=== PATIENT | female | born 1945 | race Caucasian/White ===

== ENCOUNTER → 2020-03-26 09:31 | Outpatient (BNVA) | payer MEDICARE, OTHER, MEDICAID, SELFPAY | PROVIDERS: Family Provider Internal Medicine; PCP Internal Medicine; Visit Provider Internal Medicine | DX: M06.9 Rheumatoid arthritis, unspecified (principal); Z79.899 Other long term (current) drug therapy; Z85.841 Personal history of malignant neoplasm of brain | CPT/HCPCS: 80053; 85025; 85651; 86140; 99213 ==

== ENCOUNTER → 2020-05-15 10:45 | Outpatient (BNVA) | payer MEDICARE, OTHER, SELFPAY | PROVIDERS: Family Provider Internal Medicine; PCP Internal Medicine; Referring Provider Internal Medicine; Visit Provider Anesthesiology Pain Medicine | DX: M06.9 Rheumatoid arthritis, unspecified (principal); M54.9 Dorsalgia, unspecified; M47.812 Spondylosis without myelopathy or radiculopathy, cervical region; Z79.891 Long term (current) use of opiate analgesic | CPT/HCPCS: 99204 ==

== ENCOUNTER 2020-05-21 12:54 | Outpatient (CLI) | payer MEDICARE, OTHER, MEDICAID, SELFPAY ==
--- NOTE | 2020-05-21 13:14 | XR_ITS ---
WS: [id number] THORACIC SPINE TECHNIQUE: 3 views of the thoracic spine CLINICAL INFORMATION: upper back pain COMPARISON: None. FINDINGS: Osteopenia. Mild thoracic curve convex right. Mild thoracic kyphosis. Mild disc space narrowing mid a nd lower thoracic spine. Mild compression superior endplate T2 likely chronic. No acute appearing com pression fractures. Cholecystectomy clips. XR/XR thoracic spine 3V* [id number] IMPRESSION: 1. Mild thoracic curve convex right and mild thoracic kyphosis. Osteopenia. 2. Mild compression superior endplate T2 likely chronic. 3. Mild spondylitic changes with disc space narrowing in the mid and lower tho racic spine.
--- NOTE | 2020-05-21 13:14 | XR_ITS ---
WS: [id number] LUMBAR SPINE TECHNIQUE: 3 views of the lumbar spine CLINICAL INFORMATION: lower back pain COMPARISON: None. FINDINGS: L5 is sacralized. Slight anterolisthesis L4 on L5 measuring 3.3 mm. Mild disc space narrowing L4-5. N o acute appearing compression fractures. Moderate facet arthropathy lower lumbar spine. Slight irving listhesis L5 on S1 Osteopenia. Cholecystectomy clips. XR/XR lumbar spine 2-3V* [id number] IMPRESSION: 1. L5 is sacralized. 2. Grade 1 anterolisthesis L4 on L5 with mild disc space narrowing. 3. Moderate facet arthropathy lower lumbar spine. 4. No acute appearing compression fractures.
--- NOTE | 2020-05-21 13:14 | XR_ITS ---
WS: [id number] CERVICAL SPINE TECHNIQUE: 3 views of the cervical spine CLINICAL INFORMATION: neck pain COMPARISON: None. FINDINGS: Slight exaggeration the normal cervical lordosis. Normal prevertebral soft tissues. Normal C1-2 artic ulation. Mild facet arthropathy. Mild spondylitic changes. XR/XR cervical spine 3V* [id number] IMPRESSION: Mild spondylitic changes cervical spine.
== END 2020-05-21 12:55 | disposition home or self-care (01) ==
LOC: RADWPI 13:02
PROVIDERS: PCP Internal Medicine; Visit Provider Internal Medicine
DX: M06.9 Rheumatoid arthritis, unspecified (principal); M40.294 Other kyphosis, thoracic region; M85.88 Other specified disorders of bone density and structure, other site; M47.896 Other spondylosis, lumbar region
CPT/HCPCS: 72040; 72072; 72100

== ENCOUNTER → 2020-06-12 09:10 | Outpatient (BNVA) | payer MEDICARE, OTHER, SELFPAY | PROVIDERS: Family Provider Internal Medicine; PCP Internal Medicine; Visit Provider Anesthesiology Pain Medicine | DX: M06.9 Rheumatoid arthritis, unspecified (principal); M47.812 Spondylosis without myelopathy or radiculopathy, cervical region; M54.9 Dorsalgia, unspecified; Z79.891 Long term (current) use of opiate analgesic | CPT/HCPCS: 99213 ==

== ENCOUNTER → 2020-07-10 10:19 | Outpatient (BNVA) | payer MEDICARE, MEDICAID, SELFPAY | PROVIDERS: Family Provider Internal Medicine; PCP Internal Medicine; Visit Provider Anesthesiology Pain Medicine | DX: M54.9 Dorsalgia, unspecified (principal); M06.9 Rheumatoid arthritis, unspecified; M47.812 Spondylosis without myelopathy or radiculopathy, cervical region; Z79.891 Long term (current) use of opiate analgesic | CPT/HCPCS: 99213 ==

== ENCOUNTER → 2020-07-15 14:05 | Outpatient (BNVA) | payer MEDICARE, MEDICAID, SELFPAY | PROVIDERS: Family Provider Internal Medicine; PCP Internal Medicine; Visit Provider Internal Medicine | DX: M06.9 Rheumatoid arthritis, unspecified (principal); D86.9 Sarcoidosis, unspecified; M54.5 Low back pain; G89.29 Other chronic pain | CPT/HCPCS: 99213 ==

== ENCOUNTER → 2020-08-07 10:45 | Outpatient (BNVA) | payer MEDICARE, MEDICAID, SELFPAY | PROVIDERS: Family Provider Internal Medicine; PCP Internal Medicine; Visit Provider Anesthesiology Pain Medicine | DX: M47.812 Spondylosis without myelopathy or radiculopathy, cervical region (principal); M06.9 Rheumatoid arthritis, unspecified; M54.9 Dorsalgia, unspecified; K59.03 Drug induced constipation; T40.2X5A Adverse effect of other opioids, initial encounter; X58.XXXA Exposure to other specified factors, initial encounter; Z79.891 Long term (current) use of opiate analgesic; E03.8 Other specified hypothyroidism; K21.9 Gastro-esophageal reflux disease without esophagitis; D86.9 Sarcoidosis, unspecified; I10 Essential (primary) hypertension; Z71.89 Other specified counseling | CPT/HCPCS: 80053; 80061; 82306; 82550; 82607; 84443; 85025; 99213 ==

== ENCOUNTER → 2020-09-03 10:26 | Outpatient (BNVA) | payer MEDICARE, MEDICAID, SELFPAY | PROVIDERS: Family Provider Internal Medicine; PCP Internal Medicine; Visit Provider Anesthesiology Pain Medicine | DX: M54.9 Dorsalgia, unspecified (principal); M06.9 Rheumatoid arthritis, unspecified; M47.812 Spondylosis without myelopathy or radiculopathy, cervical region; K59.03 Drug induced constipation; T40.2X5A Adverse effect of other opioids, initial encounter; X58.XXXA Exposure to other specified factors, initial encounter | CPT/HCPCS: 99214 ==

== ENCOUNTER → 2020-09-16 13:37 | Outpatient (BNVA) | payer MEDICARE, MEDICAID, SELFPAY | PROVIDERS: Family Provider Internal Medicine; PCP Internal Medicine; Visit Provider Anesthesiology Pain Medicine | DX: M47.814 Spondylosis without myelopathy or radiculopathy, thoracic region (principal); M54.9 Dorsalgia, unspecified | CPT/HCPCS: 64490; 64491; J1040; J3490 ==

== ENCOUNTER → 2020-10-11 10:09 | Outpatient (BNVA) | payer MEDICARE, MEDICAID, SELFPAY | PROVIDERS: Family Provider Internal Medicine; PCP Internal Medicine; Visit Provider Anesthesiology Pain Medicine | DX: M54.9 Dorsalgia, unspecified (principal); M47.812 Spondylosis without myelopathy or radiculopathy, cervical region; M06.9 Rheumatoid arthritis, unspecified; K59.03 Drug induced constipation; T40.2X5A Adverse effect of other opioids, initial encounter; X58.XXXA Exposure to other specified factors, initial encounter; Z79.899 Other long term (current) drug therapy; Z79.891 Long term (current) use of opiate analgesic | CPT/HCPCS: 99214 ==

== ENCOUNTER → 2020-10-30 10:56 | Outpatient (BNVA) | payer MEDICARE, MEDICAID, SELFPAY | PROVIDERS: Family Provider Internal Medicine; PCP Internal Medicine; Visit Provider Anesthesiology Pain Medicine | DX: M54.9 Dorsalgia, unspecified (principal); M47.812 Spondylosis without myelopathy or radiculopathy, cervical region; M06.9 Rheumatoid arthritis, unspecified; T40.2X5A Adverse effect of other opioids, initial encounter; X58.XXXA Exposure to other specified factors, initial encounter; Z79.899 Other long term (current) drug therapy; Z79.891 Long term (current) use of opiate analgesic | CPT/HCPCS: 99214 ==

== ENCOUNTER → 2020-11-04 12:37 | Outpatient (BNVA) | payer MEDICARE, MEDICAID, SELFPAY | PROVIDERS: Family Provider Internal Medicine; PCP Internal Medicine; Visit Provider Internal Medicine | DX: M06.9 Rheumatoid arthritis, unspecified (principal); Z79.899 Other long term (current) drug therapy; Z11.1 Encounter for screening for respiratory tuberculosis; Z11.59 Encounter for screening for other viral diseases; M54.9 Dorsalgia, unspecified | CPT/HCPCS: 80053; 85025; 85651; 86140; 86480; 86704; 86803; 87340; 99213; 99214 ==

== ENCOUNTER → 2020-11-27 10:34 | Outpatient (BNVA) | payer MEDICARE, MEDICAID, SELFPAY | PROVIDERS: Family Provider Internal Medicine; PCP Internal Medicine; Visit Provider Anesthesiology Pain Medicine | DX: M79.18 Myalgia, other site (principal); M54.9 Dorsalgia, unspecified; M47.812 Spondylosis without myelopathy or radiculopathy, cervical region; M06.9 Rheumatoid arthritis, unspecified; T40.2X5A Adverse effect of other opioids, initial encounter; X58.XXXA Exposure to other specified factors, initial encounter; Z79.891 Long term (current) use of opiate analgesic | CPT/HCPCS: 20553; 99214; J1030; J3490 ==

== ENCOUNTER → 2023-02-17 13:10 | Outpatient (BNVA) | payer MEDICARE, OTHER, SELFPAY | PROVIDERS: Family Provider Internal Medicine; PCP Internal Medicine; Visit Provider Family Medicine | DX: E03.8 Other specified hypothyroidism (principal); G47.00 Insomnia, unspecified; D50.9 Iron deficiency anemia, unspecified; I10 Essential (primary) hypertension | CPT/HCPCS: 80053; 80061; 83540; 84443; 85025 ==

== ENCOUNTER 2023-04-06 17:03 | Emergency (ER) | payer MEDICARE, OTHER, SELFPAY ==
[2023-04-06 17:08] VITALS: BP 119/63; PULSE 54; TEMP 37; O2SAT 97; BMI 20.5
--- NOTE | 2023-04-06 17:45 | XRR_ITS ---
PROCEDURE INFORMATION: Exam: XR Chest Exam date and time: 04/06/2023 6:04 PM Age: 77 years old Clinical indication: Pain; Chest pressure; Additional info: Trauma TECHNIQUE: Imaging protocol: Radiologic exam of the chest. Views: 1 view. COMPARISON: CT cervical spin wo con* [id number] 04/06/2023 5:56 PM FINDINGS: Lungs: Unremarkable. No consolidation. Pleural spaces: Unremarkable. No pleural effusion. No pneumothorax. Heart/Mediastinum: Unremarkable. No cardiomegaly. Bones/joints: Question an old fracture deformity of the proximal right humerus. Visualized osseous structures are intact. XR/XR chest 1V portable [id number] IMPRESSION: No acute findings.
--- NOTE | 2023-04-06 17:45 | CTR_ITS ---
PROCEDURE INFORMATION: Exam: CT Cervical Spine Without Contrast Exam date and time: 04/06/2023 5:56 PM Age: 77 years old Clinical indication: Injury or trauma; Fall; Concussion/head injury; Additional info: Fall from standing TECHNIQUE: Imaging protocol: Computed tomography of the cervical spine without contrast. Radiation optimization: All CT scans at this facility use at least one of these dose optimization techniques: automated exposure control; mA and/or kV adjustment per patient size (includes targeted exams where dose is matched to clinical indication); or iterative reconstruction. REPORTING DATA: Count of CT and Cardiac NM exams in prior 12 months: This patient has received 0 known CTs and 0 known cardiac nuclear medicine studies in the 12 months prior to the current study. COMPARISON: CR XR cervical spine 3V* [id number] 05/21/2020 1:21 PM RADIATION DOSE METRICS: Total DLP (mGy-cm): 163.1 FINDINGS: Bones/joints: No acute fracture. Normal alignment. No significant disc bulge or herniation. No severe spinal canal stenosis. No significant neural foraminal narrowing. Lungs: Lung apices are normal. Soft tissues: Unremarkable. CT/CT cervical spin wo con* [id number] IMPRESSION: No acute findings.
--- NOTE | 2023-04-06 17:45 | XRR_ITS ---
PROCEDURE INFORMATION: Exam: XR Left Hip Exam date and time: 04/06/2023 6:01 PM Age: 77 years old Clinical indication: Injury or trauma; Fall; Additional info: Fall with pain/injury TECHNIQUE: Imaging protocol: Radiologic exam of the left hip. Views: 2 or 3 views hip with pelvis when performed. COMPARISON: CT abdomen pelvis wo con [id number] 06/11/2018 9:57 PM FINDINGS: Bones/joints: No acute fracture. Soft tissues: Unremarkable. XR/XR hip LT 2-3V wo/w pel* [id number] IMPRESSION: No acute findings.
--- NOTE | 2023-04-06 17:45 | CTR_ITS ---
PROCEDURE INFORMATION: Exam: CT Head Without Contrast Exam date and time: 04/06/2023 5:56 PM Age: 77 years old Clinical indication: Injury or trauma; Fall; Concussion/head injury; Consciousness not specified; Additional info: Fall with injury unk loc TECHNIQUE: Imaging protocol: Computed tomography of the head without contrast. Radiation optimization: All CT scans at this facility use at least one of these dose optimization techniques: automated exposure control; mA and/or kV adjustment per patient size (includes targeted exams where dose is matched to clinical indication); or iterative reconstruction. REPORTING DATA: Count of CT and Cardiac NM exams in prior 12 months: This patient has received 0 known CTs and 0 known cardiac nuclear medicine studies in the 12 months prior to the current study. COMPARISON: CT head wo con* [id number] 06/10/2016 11:12 PM RADIATION DOSE METRICS: Total DLP (mGy-cm): 1150.95 FINDINGS: Brain: No hemorrhage. No edema. Moderate diffuse cerebral atrophy and mild sequela of chronic small vessel ischemic disease. Focal encephalomalacia in the inferior aspect of the left frontal lobe. No mass effect. Cerebral ventricles: No ventriculomegaly. Paranasal sinuses: Sequela of FESS. Mastoid air cells: Visualized mastoid air cells are well aerated. Bones/joints: Frontal craniotomy changes. No acute fracture. Soft tissues: Unremarkable. CT/CT head wo con* [id number] IMPRESSION: No acute intracranial abnormality.
--- NOTE | 2023-04-06 17:50 | ED_ITS ---
HPI - Fall General: Chief Complaint: Fall Stated Complaint: Fall Time Seen by Provider: 04/06/23 17:09 History of Present Illness: 77-year-old female presents to the emergency department chief complaint of having fallen from standing position when she lost her balance onto a wood floor she fell onto her left side she is complaining of left-sided facial pain and swelling to her face as well as left hip pain patient reports she is having difficulty with movement of her left hip to see an incident patient reports she had no loss of consciousness also complains of mild neck pain patient does not remark of any shoulder or back elbow or wrist pain. Patient presents to the ER with her son present for further assessment and management. Associated symptoms-after fall: Denies abdominal pain, chest pain or headache(s) Review of Systems General: Reports: 10 or more systems reviewed and unremarkable except in HPI and below Const: Denies: fever(s), chills, fatigue or malaise Eyes: Denies: change in vision or blurry vision Card: Denies: chest pain or palpitations Resp: Denies: dyspnea or productive cough GI: Denies: abdominal pain, nausea or vomiting : Denies: flank pain Musc: Reports: extremity pain, joint stiffness and limited range of motion Skin/Breast: Denies: rash or pruritus Neuro: Denies: headache(s) Psych: Denies: anxiety or depression Vick/Lymph: Denies: easy bleeding All/Imm: Denies: urticaria, throat swelling or facial swelling [facility] ED PFSH: Medical History Iron deficiency anemia Ischemic bowel disease half-way (current) use of opiate analgesic Pain management contract signed Rheumatoid arthritis Rheumatoid arthritis Surgical History S/P appendectomy S/P laparotomy Family History Other Rheumatoid arthritis Denies family history of Diabetes Lupus CAD (coronary artery disease) Cancer Hypertension Social History Smoking and tobacco status: never smoked Alcohol intake: never Substance/Drug Use: never Physical Exam Const: COMMON NORMALS: no acute distress, patient oriented x3 and healthy appearing HENMT: COMMON NORMALS: normocephalic; head/scalp not atraumatic (Mild facial swelling a small contusion noted to the lower left as well as a) HEAD & SCALP: normocephalic; not atraumatic (Mild facial swelling a small contusion noted to the lower left as well as a) Eye: COMMON NORMALS: Equal, round and reactive pupils present and EOMs intact bilaterally PUPIL: Yes Equal, round and reactive pupils present Neck/C-Spine: COMMON NORMALS: full ROM, supple and no JVD Lymph: LYMPHATIC: no lymphadenopathy noted Chest: COMMONS NORMALS: normal inspection of the chest and normal palpation of entire chest wall Resp: COMMON NORMALS: normal respiratory effort, No retractions and clear to auscultation bilaterally EFFORT & INSPECTION: Yes able to speak in complete sentences and Yes symmetric chest movement AUSCULTATION: clear to auscultation bilaterally Cardio: COMMON NORMALS: no JVD, regular rate and regular rhythm RATE: regular rate RHYTHM: regular rhythm GI: COMMON NORMALS: Normal to inspection, nondistended, normoactive bowel sounds present, Soft to palpation and non-tender INSPECTION: Yes normal to inspection PALPATION: Yes Soft to palpation : COMMON NORMALS: Yes no CVA tenderness BLADDER/KIDNEY EXAM: Yes no CVA tenderness Back/Pelvis: COMMON NORMALS: no CVA tenderness Extremity: COMMON NORMALS: negative for normal to inspection (Reduced range of motion of flexion extension due to pain no obvious crepitu) and negative for full ROM Neuro: COMMON NORMALS: patient oriented x3, CN's II-XII intact bilaterally, moves all extremities and no focal motor deficits Psych: COMMON NORMALS: mental status grossly normal, Normal thought process present, cooperative and normal affect THOUGHT PROCESS: Normal thought process present Skin: COMMON NORMALS: no rashes or lesions noted GENERAL SKIN EXAM: no rashes or lesions noted Course Vital Signs: Vital signs: Vital Signs Temperature 98.6 F 04/06/23 17:08 Pulse Rate 54 L 04/06/23 17:08 Blood Pressure 119/63 04/06/23 17:08 Pulse Oximetry 97 04/06/23 17:08 Oxygen Delivery Me thod Room Air 04/06/23 17:08 MDM - Fall Medical Decision Making Due to patient's symptoms and condition x-ray imaging left hip will be obtained CT imaging the head and cervical spine will be obtained we will continue to follow patient provided for some fentanyl for breakthrough pain control as well as basic lab work was obtained. CT imaging and x-ray imaging all came back unremarkable patient was able to ambulate with mild difficulty with staff present patient be started on a limited prescription of some Tylenol 3 for breakthrough pain control patient advised to return the interim if any of her symptoms persist or worse. Lab Data Radiology Impressions Cervical Spine CT 04/06/23 17:45 IMPRESSION: No acute findings. Chest X-Ray 04/06/23 17:45 IMPRESSION: No acute findings. Head CT 04/06/23 17:45 IMPRESSION: No acute intracranial abnormality. Hip/Pelvis X-Ray 04/06/23 17:45 IMPRESSION: No acute findings. Discharge Plan Discharge Patient Disposition: Home Clinical Impression: Fall from standing, Strain of left hip Condition: Stable Prescriptions: New acetaminophen-codeine 300-30 mg tablet 1 tab PO Q6H PRN (Reason: pain) Qty: 14 0RF No Action oxybutynin chloride 5 mg tablet 5 mg PO TID Qty: 90 3RF metoprolol tartrate 25 mg tablet 25 mg PO BID Qty: 60 5RF levothyroxine 75 mcg capsule 75 mcg PO DAILY Qty: 30 5RF hydrochlorothiazide 12.5 mg tablet 12.5 mg PO DAILY Qty: 30 3RF diclofenac sodium [Voltaren Arthritis Pain] 1 % gel 2 g topical QID Qty: 100 3RF Rx Instructions: apply qid amitriptyline 50 mg tablet 50 mg PO .qhs Qty: 30 3RF sertraline [Zoloft] 50 mg tablet 50 mg PO DAILY Qty: 30 2RF fenofibrate 160 mg tablet 160 mg PO DAILY Qty: 30 2RF Rx Instructions: needs recheck lab at end of last refill buspirone 15 mg tablet 15 mg PO TID PRN (Reason: anxiety) Qty: 90 1RF hydrocodone-acetaminophen 5-325 mg tablet 1 tab PO BID PRN (Reason: pain) 30 Days Qty: 60 0RF Discharge Orders: Discharge ED (Routine); Ordered 04/06/23 Ordered By: Chino Miller Referrals: Maria Elena Cottrell MD [Primary Care Provider] - 4-7 days (As needed for further assessment and management if your pain continues) Discharge Diet: Usual diet Discharge Activity: Increase activity as tolerated and Use walker/crutches as instructed Patient Instructions: Fall Prevention for Older Adults (ED), Hip Sprain (ED), Fall Prevention (ED), Opioid Safety, Pain Management Activity Restrictions/Additional Instructions: Please further follow-up with your primary care doctor in 3 to 5 days please continue using walker as already in use. Please take medications as prescribed and please return the interim if any of your symptoms persist or worse. Coding Level of Care Code ED Exhaust Tender for Katya Monroe
[2023-04-06] MEDS: ondansetron 2 mg/ML SDV 2 mL 4 MG IVP (18:12)
[2023-04-06] MEDS: sodium chloride 0.9% 500 ML 999 ML IV (18:13)
[2023-04-06 19:13] VITALS: BP 119/63; PULSE 54; TEMP 37; O2SAT 97
== END 2023-04-06 19:14 | disposition home or self-care (01) ==
PROVIDERS: Emergency Provider Emergency Medicine; PCP Family Medicine
DX: S76.012A Strain of muscle, fascia and tendon of left hip, initial encounter (principal); W01.0XXA Fall on same level from slipping, tripping and stumbling without subsequent striking against object, initial encounter
CPT/HCPCS: 70450; 71045; 72125; 73502; 96374; 99285; J2405; J7040

== ENCOUNTER 2023-04-20 12:58 | Outpatient (CLI) | payer MEDICARE, OTHER, SELFPAY ==
--- NOTE | 2023-04-20 13:08 | XRR_ITS ---
PROCEDURE INFORMATION: Exam: XR Left Hip Exam date and time: 04/20/2023 1:14 PM Age: 77 years old Clinical indication: Hip pain; Left hip TECHNIQUE: Imaging protocol: Radiologic exam of the left hip. Views: 2 or 3 views hip with pelvis when performed. COMPARISON: CR (PELVIS, ) 04/06/2023 6:01 PM FINDINGS: Bones/joints: No acute fracture or dislocation. Left sacroiliac joint and pubic symphysis degenerative change. Soft tissues: Unremarkable. Intraperitoneal space: Anastomotic suture material in the pelvis. XR/XR hip LT 2-3V wo/w pel* [id number] IMPRESSION: No acute findings. If there is persistent clinical concern, consider MRI.
== END 2023-04-20 12:59 | disposition home or self-care (01) ==
LOC: RAD 13:01
PROVIDERS: PCP Family Medicine; Visit Provider Family Medicine
DX: M25.552 Pain in left hip (principal)
CPT/HCPCS: 73502

== ENCOUNTER → 2023-04-23 11:19 | Outpatient (BNVA) | payer MEDICARE, OTHER, SELFPAY | PROVIDERS: PCP Family Medicine; Visit Provider Family Medicine | DX: D50.9 Iron deficiency anemia, unspecified (principal); I10 Essential (primary) hypertension; Z79.899 Other long term (current) drug therapy | CPT/HCPCS: 80053; 80307; 81003; 85025; 87077; 87086; 87184 ==

== ENCOUNTER 2024-03-01 10:23 | Observation (INO) | payer MEDICARE, OTHER, SELFPAY ==
[2024-03-01] VITALS (8 sets, daily range): BP systolic 109–137; BP diastolic 54–80; PULSE 50–73; RESP 14–16; TEMP 36.4–36.6; O2SAT 97–100; BMI 24.8
--- NOTE | 2024-03-01 10:30 | ECG_ITS ---
[facility] Test Date: 2024-03-01 Pat Name: Caitlin Espinosa Department: Room: Gender: Female Geriatric Personal Care Aide: : 1945 Requested By: Roosevelt Ayala Order Number: [id number] Garza MD: Ivelisse Mckeon M.D. Measurements Intervals Marcus Rate: 52 P: 89 NE: 189 QRS: -4 QRSD: 81 T: 67 QT: 433 QTc: 404 Interpretive Statements SINUS BRADYCARDIA NONSPECIFIC T-WAVE ABNORMALITY Compared to ECG 06/11/2018 22:56:34 T-wave abnormality now present Sinus tachycardia no longer present ST (T wave) deviation no longer present Electronically Signed On 03-02-2024 0:17:21 CDT by Ivelisse Mckeon M.D. [id number]
[2024-03-01 10:59] LABS: Basophils # 0.1 10^3/uL (0.0-0.1); Basophils % 1.7 %; Eosinophils # 0.2 10^3/uL (0.0-0.8); Eosinophils % 3.7 %; Hematocrit 24.3 % (36-47); Lymphocytes # 2.2 10^3/uL (0.8-4.8); Lymphocytes % 42.9 %; Mean Corpuscular Hemoglobin 25.5 pg (27-33); Mean Platelet Volume 9.4 fL (7.4-10.4); Monocytes # 0.6 10^3/uL (0.2-0.9); Monocytes % 10.6 %; Neutrophils # 2.11 10^3/uL (1.8-7.7); Neutrophils % 40.9 %; Nucleated Red Blood Cells % 0 %; Platelet Count 630 10^3/cmm (157-399); Red Blood Count 2.86 10^6/uL (3.85-5.65); Red Cell Distribution Width 14.6 % (12.1-15.1); White Blood Count 5.17 10^3/uL (3.29-11.43)
[2024-03-01 11:19] LABS: Alanine Aminotransferase 9 U/L (0-33); Albumin Level 3.8 g/dL (3.5-5.2); Alkaline Phosphatase 56 U/L (35-105); Anion Gap 15.9 (5-19); Aspartate Amino Transferase 29 U/L (0-32); Blood Urea Nitrogen 24 mg/dL (8-23); Calcium 9.2 mg/dL (8.5-10.5); Carbon Dioxide 21 mmol/L (22-29); Chloride 101 mmol/L (98-107); Globulin 3.3 g/dL (1.3-4.6); Glucose 103 mg/dL (65-115); Osmolality Calculated 280 mOsm/kg (285-295); Potassium 4.9 mmol/L (3.5-5.1); Sodium 133 mmol/L (136-145); Total Bilirubin 0.2 mg/dL (0.15-1.2); Total Protein 7.1 g/dL (6.6-8.7)
[2024-03-01 12:02] LABS: INR 1.02 (0.8-1.2)
[2024-03-01 12:03] LABS: Partial Thromboplastin Time 31.3 SECONDS (23.9-36.7)
[2024-03-01 12:08] LABS: C Reactive Protein 3.3 mg/L (0.0-4.9)
[2024-03-01] MEDS: pantoprazole 40 mg SDV 80 MG IVP (12:12)
--- NOTE | 2024-03-01 12:14 | P.HP_ITS ---
Providers/Chief Complaint 2 Primary Care Provider: Maria Elena Cottrell MD Chief Complaint: blood in stool, fall History of Present Illness Caitlin Espinosa is a 78 year old female who has a history of iron deficiency anemia stating that she has been getting iron in the past, lately she has been very weak and lethargic. Patient came to the hospital because she was extremely weak and lethargic to the point she could not get up change from sitting to standing. Patient started noticing darker stools lately patient stating that she was extremely weak she had a BM, she had no energy to get up from the stool waited for her son to come in and help her out but he was mowing the lawn so he took a lot of time she got tired put her robe on the floor and slid, she did not flush when her son checked on her noticed dark-colored stools. She has not noticed any blood in vomiting or urine. Endorsing history of iron infusion in the past Patient stating that she never had screening colonoscopy She has history of arthritis takes meloxicam as well not on any anticoagulating agent Review of Systems 2 Const: Reports: chills, body aches, fatigue and malaise; Denies: fever(s) Eyes: Denies: change in vision ENMT: Denies: throat pain Card: Denies: chest pain Resp: Denies: dyspnea GI: Denies: abdominal pain Medications/Allergies Home Medications Medication Instructions Recorded Confirmed Last Taken Type metoprolol tartrate 25 mg tablet 25 mg PO BID #60 tabs 09/07/23 03/01/24 03/01/24 Rx fenofibrate 160 mg tablet 160 mg PO DAILY #30 tabs 12/03/23 03/01/24 03/01/24 Rx meloxicam 15 mg tablet 15 mg PO DAILY arthritis #30 tabs 12/14/23 03/01/24 03/01/24 Rx escitalopram oxalate 20 mg tablet 20 mg PO BEDTIME 03/01/24 03/01/24 02/29/24 History levothyroxine 75 mcg capsule 75 mcg PO QAM 03/01/24 03/01/24 03/01/24 History loratadine 10 mg tablet (Claritin) 10 mg PO DAILY PRN ALLERGIES 03/01/24 03/01/24 Unknown History Allergies Allergy/AdvReac Type Severity Reaction Status Date / Time No Known Allergies Allergy Verified 03/01/24 10:58 PFSH Acute 2 PFSH: Medical History Enrolled in chronic care management Ischemic bowel disease Iron deficiency anemia long term care phlebotomist (current) use of opiate analgesic Pain management contract signed Rheumatoid arthritis Rheumatoid arthritis Surgical History S/P appendectomy S/P laparotomy Family History Other Rheumatoid arthritis Denies family history of Diabetes Lupus CAD (coronary artery disease) Cancer Hypertension Social History Smoking and tobacco/nicotine status: never used tobacco/nicotine Alcohol intake: never Substance/Drug Use: never Vitals/I&O/Wt Last Vital Signs Temp 97.8 F 03/01/24 10:54 Pulse 50 L 03/01/24 11:58 Resp 14 03/01/24 11:58 BP 112/65 03/01/24 11:58 Pulse Ox 98 03/01/24 11:58 O2 Del Method Room Air 03/01/24 11:58 Weight last 48 hrs Weight 55.792 kg Physical Exam 2 Narrative: Pleasant cooperative No sign of heart failure Pale complexion Nonfocal neuroexam Appears sedated Pleasant cooperative Laying supine Hemodynamically stable Heart rate in 80s sinus rhythm Data 03/01/24 10:37 03/01/24 10:37 A&P Assessment and plan (1) Long-term use of high-risk medication: (2) Essential hypertension: (3) Hypothyroidism: Qualifiers: Hypothyroidism type: other Qualified Code(s): E03.8 - Other specified hypothyroidism (4) GERD (gastroesophageal reflux disease): Qualifiers: Esophagitis presence: without esophagitis Qualified Code(s): K21.9 - Gastro-esophageal reflux disease without esophagitis (5) Upper GI bleed: (6) Iron deficiency anemia: (7) Acute blood loss anemia: (8) Rheumatoid arthritis: Plan Upper GI bleed Acute on chronic anemia Iron deficiency Patient received iron in the past Will give her 1 unit PRBC Check ferritin level and B12 N.p.o. after midnight for EGD and possible colonoscopy in the morning Dr. Kang Segura has been consulted and notified Liquid diet for now Mag citrate 1 bottle Start Protonix 40 mg IV every 12 hours Goals of care discussed with the patient she is DNR/DNI Lives with her son She may hold off on her levothyroxine and metoprolol for now to avoid hypotension discontinue meloxicam DVT prophylaxis SCDs Attestations 2 Medical Necessity Statement*: Anticipating discharge within 48 hours she will need endoscopy for upper GI bleed evaluate Diagnoses Long-term use of high-risk medication Z79.899 Essential hypertension I10 Other specified hypothyroidism E03.8 Hypothyroidism type: other Gastroesophageal reflux disease without esophagitis K21.9 Esophagitis presence: without esophagitis Upper GI bleed K92.2 Iron deficiency anemia D50.9 Acute blood loss anemia D62 Rheumatoid arthritis M06.9
--- NOTE | 2024-03-01 12:15 | CT_ITS ---
WS: [id number] CT ABDOMEN PELVIS TECHNIQUE: Noncontrast CT of the abdomen and pelvis with coronal and sagittal reformatted images. CLINICAL INFORMATION: Upper GI bleeding, per hospitalist COMPARISON: None. DLP: 331.[address] scans at [facility] use at least one of these dose optimization techniques: automated e xposure control; mA and/or kV adjustment per patient size (includes targeted exams where dose is matc hed to clinical indication); or iterative reconstruction. FINDINGS: Osteoporosis. Large esophageal canal hernia with partial intrathoracic stomach is similar to previous . Lung bases are well aerated. Noncontrast liver is normal. Cholecystectomy clips. Normal spleen. Fat ty atrophy of the pancreas. Splenic artery calcification. Adrenal glands are normal. Mild aortic calc ification. No aneurysm. No hydronephrosis in either kidney. A few small renal cortical lesions too sm all to characterize. Postoperative changes of prior colon or small bowel resection. Prior appendectomy. Prior hysterectomy . Slight anterolisthesis L4 on L5. CT/CT abdomen pelvis wo con [id number] IMPRESSION: 1. Large esophageal hiatal hernia with partial intrathoracic stomach similar t o previous. 2. Prior cholecystectomy. 3. Prior appendectomy and hysterectomy. 4. Evidence of prior partial colon and/or small bowel resection in the pelvis. 5. Osteoporosis. 6. No other acute findings.
--- NOTE | 2024-03-01 12:15 | W.ED.GIBLEED ---
HPI - GI Bleed General: Chief complaint: GI Bleed Stated complaint: blood in stool, fall Time Seen by Provider: 03/01/24 11:16 History of Present Illness: 78-year-old female with a history of rheumatoid arthritis and chronic pain who presents to the emergency room with weakness and black tarry stools. She states she had diarrhea that was black and tarry yesterday. This is resolved today. However she feels very weak and looks pale today. She gets lightheaded when she stands. No focal abdominal pain. No fevers. No dysuria. No chest pain. No altered mental status. Review of Systems Narrative: Constitutional symptoms: Negative except as documented in HPI. Skin symptoms: Negative except as documented in HPI. Eye symptoms: Negative except as documented in HPI. ENMT symptoms: Negative except as documented in HPI. Respiratory symptoms: Negative except as documented in HPI. Cardiovascular symptoms: Negative except as documented in HPI. Gastrointestinal symptoms: Negative except as documented in HPI. Genitourinary symptoms: Negative except as documented in HPI. Musculoskeletal symptoms: Negative except as documented in HPI. Neurologic symptoms: Negative except as documented in HPI. Psychiatric symptoms: Negative except as documented in HPI. Endocrine symptoms: Negative except as documented in HPI. PFS ED PFSH: Medical History (Updated 03/01/24 @ 12:25 by Estefani Queen MD) Enrolled in chronic care management Ischemic bowel disease Iron deficiency anemia senior living (current) use of opiate analgesic Pain management contract signed Rheumatoid arthritis Rheumatoid arthritis Surgical History S/P appendectomy S/P laparotomy Family History Other Rheumatoid arthritis Denies family history of Diabetes Lupus CAD (coronary artery disease) Cancer Hypertension Social History Smoking and tobacco/nicotine status: never used tobacco/nicotine Alcohol intake: never Substance/Drug Use: never Physical Exam Narrative: EXAM NARRATIVE: General: Alert, no acute distress. Skin: Warm, dry. Pale Head: Normocephalic, atraumatic. Neck: Supple, trachea midline. Eye: Extraocular movements are intact. Ears, nose, mouth and throat: mucosa moist. Cardiovascular: Regular, Normal peripheral perfusion. Respiratory: Lungs are clear to auscultation, respirations are non-labored, breath sounds are equal, Symmetrical chest wall expansion. Gastrointestinal: Soft, Nontender, Non distended Musculoskeletal: Normal ROM, no deformity. Neurological: Alert and oriented, No focal neurological deficit observed. Psychiatric: Cooperative, appropriate mood & affect. Course Vital Signs: Vital signs: Vital Signs Temperature 97.8 F 03/01/24 10:54 Pulse Rate 50 L 03/01/24 11:58 Respiratory Rate 14 03/01/24 11:58 Blood Pressure 112/65 03/01/24 11:58 Pulse Oximetry 98 03/01/24 11:58 Oxygen Delivery Me thod Room Air 03/01/24 11:58 MDM - GI Bleed Medical Decision Making Medical decision making: Differential diagnosis including but not limited to and based on the above HPI, review of systems and physical exam: In this patient with black tarry stools, paleness and weakness I have concern for an upper GI bleed. Basic lab work and a type and screen were ordered. Coags. Orders placed to evaluate differential diagnosis based on the above differential, HPI and physical exam Lab Review: Laboratory results were reviewed and interpreted by myself the emergency room physician. Patient has a hemoglobin of 7.3 which is significantly down from previous which averages around 11-12. Her BUN is elevated at 24 which is normally around 11 which would indicate an uptake of nitrogen products which would lean towards an upper GI bleed. Creatinine is near normal at 0.9. I reviewed the patient's medical record. Reexamination: Patient remained stable. Her blood pressure soft but not hypotensive. Heart rate has been low to normal but she is on a beta-darrell. No altered mental status. No focal motor deficits. No abdominal pain. Consultation: I spoke with Dr. Dorsey. He agrees with high intensity PPI therapy and admission to the hospitalist and he will plan on endoscopy tomorrow. Consultation: I spoke with Dr. Zavaleta about the patient. He agrees to admission. He request a CT scan of the abdomen pelvis which I have ordered. Patient remained stable and should be okay to go to the floor Assessment and plan: Upper GI bleeding Acute blood loss anemia -80 mg IV Protonix in the emergency room. -2 units of blood have been ordered. She is a very difficult type and cross apparently she is O neg. -I discussed the patient with the hospitalist on-call who is admitting the patient. - Discussed findings and plan with patient. Answered any questions. - All laboratory values were reviewed and interpreted personally by myself, the ER physician - All imaging was reviewed and interpreted personally by myself, the ER physician. - Evaluation and treatment of this problem were appropriate in the emergency setting -I spent a total of >35 minutes of critical care time managing the patient, independent of any other practitioner. -The time involved in the performance of separately reportable procedures was not counted towards critical care time. Lab Data 03/01/24 10:37 03/01/24 10:37 Laboratory Results WBC 5.17 10^3/uL (3.29-11.43) 03/01/24 10:37 RBC 2.86 10^6/uL (3.85-5.65) L 03/01/24 10:37 Hgb 7.30 g/dL (11.27-16.99) L 03/01/24 10:37 Hct 24.3 % (36-47) L 03/01/24 10:37 MCV 85.0 fl (85-98) 03/01/24 10:37 MCH 25.5 pg (27-33) L 03/01/24 10:37 MCHC 30.0 g/dL (30-55) 03/01/24 10:37 RDW 14.6 % (12.1-15.1) 03/01/24 10:37 Plt Count 630 10^3/cmm (157-399) H 03/01/24 10:37 MPV 9.4 fL (7.4-10.4) 03/01/24 10:37 Neut % (Auto) 40.9 % 03/01/24 10:37 Lymph % (Auto) 42.9 % 03/01/24 10:37 [place] % (Auto) 10.6 % 03/01/24 10:37 Eos % (Auto) 3.7 % 03/01/24 10:37 Baso % (Auto) 1.7 % 03/01/24 10:37 Neut # (Auto) 2.11 10^3/uL (1.8-7.7) 03/01/24 10:37 Lymph # (Auto) 2.2 10^3/uL (0.8-4.8) 03/01/24 10:37 [place] # (Auto) 0.6 10^3/uL (0.2-0.9) 03/01/24 10:37 Eos # (Auto) 0.2 10^3/uL (0.0-0.8) 03/01/24 10:37 Baso # (Auto) 0.1 10^3/uL (0.0-0.1) 03/01/24 10:37 Nucleated RBC % (auto) 0 % 03/01/24 10:37 Nucleated RBCs # 0.0 /100WBC 03/01/24 10:37 PT 13.70 SECONDS (12.1-14.9) 03/01/24 11:44 INR 1.02 (0.8-1.2) 03/01/24 11:44 APTT 31.3 SECONDS (23.9-36.7) 03/01/24 11:44 Sodium 133 mmol/L (136-145) L 03/01/24 10:37 Potassium 4.9 mmol/L (3.5-5.1) 03/01/24 10:37 Chloride 101 mmol/L (98-107) 03/01/24 10:37 Carbon Dioxide 21 mmol/L (22-29) L 03/01/24 10:37 Anion Gap 15.9 (5-19) 03/01/24 10:37 BUN 24 mg/dL (8-23) H 03/01/24 10:37 Creatinine 0.9 mg/dL (0.5-0.9) 03/01/24 10:37 GFR Calculation Not Reportable 03/01/24 10:37 Glucose 103 mg/dL (65-115) 03/01/24 10:37 Calculated Osmolality 280 mOsm/kg (285-295) L 03/01/24 10:37 Calcium 9.2 mg/dL (8.5-10.5) 03/01/24 10:37 Total Bilirubin 0.2 mg/dL (0.15-1.2) 03/01/24 10:37 AST 29 U/L (0-32) 03/01/24 10:37 ALT 9 U/L (0-33) 03/01/24 10:37 Alkaline Phosphatase 56 U/L (35-105) 03/01/24 10:37 C-Reactive Protein 3.3 mg/L (0.0-4.9) 03/01/24 11:44 Total Protein 7.1 g/dL (6.6-8.7) 03/01/24 10:37 Albumin 3.8 g/dL (3.5-5.2) 03/01/24 10:37 Globulin 3.3 g/dL (1.3-4.6) 03/01/24 10:37 Blood Type O Negative 03/01/24 10:37 Rho(D) Type Rh negative 03/01/24 10:37 Antibody Screen Positive 03/01/24 10:37 Crossmatch See Detail 03/01/24 10:37 No radiology studies performed this visit Discharge Plan Discharge Patient Disposition: Admitted As Inpatient Clinical Impression: Upper GI bleed, Acute blood loss anemia Condition: Stable Coding Level of Care Code ED Seasonal Customer Service Associate for Katya Monroe
[2024-03-01 13:16] LABS: Iron 46 ug/dL (37-145); Percent Saturation 15.3 % (20-50); Total Iron Binding Capacity 299 mcg/dl; Unsaturated Iron Binding 253 ug/dL (112-347)
[2024-03-01] MEDS: magnesium citrate Btl 296 mL PO (13:22)
--- NOTE | 2024-03-01 14:20 | P.CONIM_ITS ---
Providers/Reason For Consult 2 Consulting Physician/Specialty*: General surgery Reason for Consult*: Acute upper GI bleeding Primary Care Provider: Maria Elena Cottrell MD History of Present Illness History of Present Illness Caitlin Espinosa is a 78 year old female who is in the hospital after noticing weakness and melena. Per patient report she has history of previous gastric ulcers in the past and over the last 2 weeks she has been under a lot of stress after her son passing away. She noted weakness and large amount of melena today, and about 2 weeks ago she had 1 episode of coffee-ground emesis. Review of Systems 2 General: Reports: 10 or more systems reviewed and unremarkable except in HPI and below Medications/Allergies Home Medications Medication Instructions Recorded Confirmed Last Taken Type metoprolol tartrate 25 mg tablet 25 mg PO BID #60 tabs 09/07/23 03/01/24 03/01/24 Rx fenofibrate 160 mg tablet 160 mg PO DAILY #30 tabs 12/03/23 03/01/24 03/01/24 Rx meloxicam 15 mg tablet 15 mg PO DAILY arthritis #30 tabs 12/14/23 03/01/24 03/01/24 Rx escitalopram oxalate 20 mg tablet 20 mg PO BEDTIME 03/01/24 03/01/24 02/29/24 History levothyroxine 75 mcg capsule 75 mcg PO QAM 03/01/24 03/01/24 03/01/24 History loratadine 10 mg tablet (Claritin) 10 mg PO DAILY PRN ALLERGIES 03/01/24 03/01/24 Unknown History Allergies Allergy/AdvReac Type Severity Reaction Status Date / Time No Known Allergies Allergy Verified 03/01/24 10:58 PFSH Acute 2 PFSH: Medical History (Updated 03/01/24 @ 12:25 by Estefani Queen MD) Enrolled in chronic care management Ischemic bowel disease 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 Pain management contract signed Rheumatoid arthritis Rheumatoid arthritis Surgical History S/P appendectomy S/P laparotomy Family History Other Rheumatoid arthritis Denies family history of Diabetes Lupus CAD (coronary artery disease) Cancer Hypertension Social History Smoking and tobacco/nicotine status: never used tobacco/nicotine Alcohol intake: never Substance/Drug Use: never Vitals/I&O/Wt Last Vital Signs Temp 97.8 F 03/01/24 10:54 Pulse 56 L 03/01/24 13:30 Resp 14 03/01/24 11:58 BP 112/65 03/01/24 11:58 Pulse Ox 100 03/01/24 13:30 O2 Del Method Room Air 03/01/24 13:30 Weight last 48 hrs Weight 123 lb Physical Exam 2 Narrative: General : Patient is well developed , no acute distress, oriented x3 Head : Normal cephalic, a-traumatic. Nose : Mucous membranes are without erythema. Lungs : Equal chest rise bilaterally, no use of accessory muscles, trachea is midline. CV : Rate and rhythm are normal. Abdomen : Soft, ND, NT, no g/r/m Extremities : No edema. Upper extremities are normal bilaterally. Back : non-tender to palpation, no CVA tenderness. Data 03/01/24 10:37 03/01/24 10:37 A&P Assessment and plan (1) Upper GI bleed: After a complete history, physical examination and review of all available clinical data the following is my assessment. I have explained to the patient that her symptoms are compatible with an acute upper GI bleed, this can be precipitated by stress and also by NSAID consumption due to arthritis. I will recommend that we proceed with upper endoscopy after initial resucitation and high-dose PPI. I have also reviewed the CT scan of the abdomen and pelvis which show evidence of a large hiatal hernia but no other significant acute findings. I discussed all recent benefits of the endoscopy including the result perforation of the level of the cricopharyngeal muscle, esophagus, stomach or duodenum. Splane to the patient that in the case of perforation this will be a surgical emergency and she might require transfer to higher level of care. Patient shows understanding and is agreeable to proceed. Upper endoscopy with bleeding control will be scheduled for tomorrow morning. Please keep the patient n.p.o. after midnight. Please start the patient on high-dose PPI she can also have liquid Carafate 1 g every 6 hours. Coding Level of Care Code Acute Code for [facility] Diagnoses Upper GI bleed K92.2
[2024-03-01 15:31] LABS: Ferritin 49 ng/mL (15-150)
[2024-03-01 16:07] LABS: Vitamin B12 378 pg/mL (232-1245)
[2024-03-01 16:08] LABS: Estmated Average Glucose 77; Hemoglobin A1C 4.3 % (4.0-6.0)
[2024-03-01] MEDS: sodium chloride 0.9% 1,000 ML 75 ML IV (17:07)
[2024-03-01] MEDS: pantoprazole 40 mg SDV IVP (17:19)
[2024-03-01] MEDS: acetaminophen 500 mg Tablet PO (21:10)
[2024-03-02] VITALS (16 sets, daily range): BP systolic 98–163; BP diastolic 64–88; PULSE 63–117; RESP 16–18; TEMP 36.3–37; O2SAT 94–99
[2024-03-02 02:26] LABS: Basophils # 0.1 10^3/uL (0.0-0.1); Eosinophils # 0.2 10^3/uL (0.0-0.8); Eosinophils % 2.1 %; Hematocrit 27.5 % (36-47); Lymphocytes # 2.4 10^3/uL (0.8-4.8); Lymphocytes % 31.2 %; Mean Corpuscular HGB Conc 31.6 g/dL (30-55); Mean Corpuscular Hemoglobin 26.4 pg (27-33); Mean Corpuscular Volume 83.6 fl (85-98); Mean Platelet Volume 9.6 fL (7.4-10.4); Monocytes # 0.6 10^3/uL (0.2-0.9); Monocytes % 8.4 %; Neutrophils # 4.33 10^3/uL (1.8-7.7); Neutrophils % 56.8 %; Nucleated Red Blood Cells % 0 %; Platelet Count 580 10^3/cmm (157-399); Red Blood Count 3.29 10^6/uL (3.85-5.65); Red Cell Distribution Width 14.5 % (12.1-15.1); White Blood Count 7.63 10^3/uL (3.29-11.43)
[2024-03-02 02:43] LABS: Anion Gap 13.5 (5-19); Blood Urea Nitrogen 24 mg/dL (8-23); Calcium 8.9 mg/dL (8.5-10.5); Carbon Dioxide 21 mmol/L (22-29); Chloride 106 mmol/L (98-107); Glucose 94 mg/dL (65-115); Magnesium 2.5 mg/dL (1.7-2.3); Osmolality Calculated 286 mOsm/kg (285-295); Phosphorus 3.3 mg/dL (2.5-4.5); Potassium 4.5 mmol/L (3.5-5.1); Sodium 136 mmol/L (136-145)
--- NOTE | 2024-03-02 05:33 | PC.NURSE ---
attempted to fill out pre-operative checklist but unable to save without completing the whole questioner and this nurse and pt does not have all the information
[2024-03-02] MEDS: sodium chloride 0.9% 1,000 ML 75 ML IV ×2 (06:20→19:27)
--- NOTE | 2024-03-02 06:51 | P.HP_ITS ---
Same Day Surgery H&P Indication for Procedure/HPI DATE OF PROCEDURE: March 02, 2024 CHIEF COMPLAINT/INDICATIONFOR SURGICAL PROCEDURE: upper gi bleeding PREOP DIAGNOSIS: upper gi bleeding PLANNED PROCEDURE: Operation Date: 03/02/24 11:15 Proposed Procedures p EGD with possible biopsy and bleeding control(Not Applicable) - Fredrick Dorsey MD Medications/Allergies* Home Medications Medication Instructions Recorded Confirmed Type escitalopram oxalate 20 mg tablet 20 mg PO BEDTIME 03/01/24 03/01/24 History levothyroxine 75 mcg capsule 75 mcg PO QAM 03/01/24 03/01/24 History loratadine 10 mg tablet (Claritin) 10 mg PO DAILY PRN ALLERGIES 03/01/24 03/01/24 History Allergies/Adverse Reactions Allergy/AdvReac Type Severity Reaction Status Date / Time No Known Allergies Allergy Verified 03/01/24 10:58 Current Medications: Generic Name Dose Route Start Last Admin Trade Name Freq PRN Reason Stop Dose Admin Acetaminophen 500 mg 03/01/24 15:07 03/01/24 21:10 Acetaminophen 500 Mg Tablet PO 500 mg Q4H PRN Administration fever Sodium Chloride 1,000 mls @ 75 mls/hr 03/01/24 15:07 03/02/24 06:20 Sodium Chloride 0.9% IV 75 mls/hr .[id number] RETA Administration Pantoprazole Sodium 40 mg 03/01/24 18:00 03/01/24 17:19 Pantoprazole 40 Mg Sdv IVP 40 mg BID RETA Administration Pertinent History/Comorbid Conditions* Medical History (Updated 03/01/24 @ 12:25 by Estefani Queen MD) Enrolled in chronic care management Ischemic bowel disease Iron deficiency anemia [facility] (current) use of opiate analgesic Pain management contract signed Rheumatoid arthritis Rheumatoid arthritis Surgical History (Updated 08/07/20 @ 14:26 by Maria Elena Cottrell MD) S/P appendectomy S/P laparotomy Family History (Updated 03/26/20 @ 09:51 by Stefanie Baeza LPN) Rheumatoid arthritis Denies family history of Diabetes Lupus CAD (coronary artery disease) Cancer Hypertension Social History Smoking and tobacco/nicotine status: never used tobacco/nicotine Alcohol intake: never Substance/Drug Use: never Pertinent Exam Findings alert, oriented x 3, clear to auscultation bilaterally and regular rate & rhythm Recommendations Surgery/Procedure today Coding Level of Care Code Acute Code for [facility]
--- NOTE | 2024-03-02 06:53 | P.HP_ITS ---
Same Day Surgery H&P Indication for Procedure/HPI DATE OF PROCEDURE: March 02, 2024 CHIEF COMPLAINT/INDICATIONFOR SURGICAL PROCEDURE: Upper GI bled PREOP DIAGNOSIS: upper gi bleeding PLANNED PROCEDURE: Operation Date: 03/02/24 11:15 Proposed Procedures p EGD with possible biopsy and bleeding control(Not Applicable) - Fredrick Dorsey MD Medications/Allergies* Home Medications Medication Instructions Recorded Confirmed Type escitalopram oxalate 20 mg tablet 20 mg PO BEDTIME 03/01/24 03/01/24 History levothyroxine 75 mcg capsule 75 mcg PO QAM 03/01/24 03/01/24 History loratadine 10 mg tablet (Claritin) 10 mg PO DAILY PRN ALLERGIES 03/01/24 03/01/24 History Allergies/Adverse Reactions Allergy/AdvReac Type Severity Reaction Status Date / Time No Known Allergies Allergy Verified 03/01/24 10:58 Current Medications: Generic Name Dose Route Start Last Admin Trade Name Freq PRN Reason Stop Dose Admin Acetaminophen 500 mg 03/01/24 15:07 03/01/24 21:10 Acetaminophen 500 Mg Tablet PO 500 mg Q4H PRN Administration fever Sodium Chloride 1,000 mls @ 75 mls/hr 03/01/24 15:07 03/02/24 06:20 Sodium Chloride 0.9% IV 75 mls/hr .[id number] RETA Administration Pantoprazole Sodium 40 mg 03/01/24 18:00 03/01/24 17:19 Pantoprazole 40 Mg Sdv IVP 40 mg BID RETA Administration Pertinent History/Comorbid Conditions* Medical History (Updated 03/01/24 @ 12:25 by Estefani Queen MD) Enrolled in chronic care management Ischemic bowel disease Iron deficiency anemia dedicated intermodal truck driver (current) use of opiate analgesic Pain management contract signed Rheumatoid arthritis Rheumatoid arthritis Surgical History (Updated 08/07/20 @ 14:26 by Maria Elena Cottrell MD) S/P appendectomy S/P laparotomy Family History (Updated 03/26/20 @ 09:51 by Stefanie Baeza LPN) Rheumatoid arthritis Denies family history of Diabetes Lupus CAD (coronary artery disease) Cancer Hypertension Social History Smoking and tobacco/nicotine status: never used tobacco/nicotine Alcohol intake: never Substance/Drug Use: never Pertinent Exam Findings alert, oriented x 3, clear to auscultation bilaterally and regular rate & rhythm Recommendations Surgery/Procedure today (patient stable, hemoglobin trended up. agreeable to proceed) Coding Level of Care Code Acute Code for [facility]
[2024-03-02] MEDS: pantoprazole 40 mg SDV IVP ×2 (08:09→17:37)
[2024-03-02] MEDS: sodium chloride 0.9% 1,000 ML 30 ML IV (11:00)
--- NOTE | 2024-03-02 11:00 | P.PN_ITS ---
Subjective 2 Subjective: Plan for EGD and colonoscopy Depending on the results we will decide whether patient needs to stay 1 more day versus discharge Patient does not have any hemodynamic instability Still have pale complexion Patient does not need iron supplementation for now I would like to keep her B12 above 400 Vitals/I&O/Wt Last Vital Signs Temp 97.6 F 03/02/24 10:57 Pulse 106 H 03/02/24 10:57 Resp 18 03/02/24 10:57 BP 146/88 03/02/24 10:57 Pulse Ox 94 03/02/24 10:57 O2 Del Method Room Air 03/02/24 10:57 03/01/24 03/02/24 03/02/24 22:59 06:59 14:59 Intake Total 590 / 590 991.25 / 1581.25 Balance 590 / 590 991.25 / 1581.25 Weight last 48 hrs Weight 60.441 kg Weight 57.697 kg Weight 55.792 kg Physical Exam 2 Narrative: Patient is awake and alert GCS 15 Pale complexion No hemodynamic instability No abdominal pain Pleasant cooperative Nonfocal neuroexam S1, S2 tachycardia Data 03/02/24 02:00 03/02/24 02:00 A&P Assessment and plan (1) Upper GI bleed: (2) Acute blood loss anemia: (3) Rheumatoid arthritis: (4) Back pain: (5) Essential hypertension: (6) Hypothyroidism: Qualifiers: Hypothyroidism type: other Qualified Code(s): E03.8 - Other specified hypothyroidism Plan Acute on chronic blood loss anemia No hemodynamic instability Will give another unit PRBC patient extremely pale Plan for EGD and colonoscopy Holding off on DVT prophylaxis with anticoagulated Continue SCDs Depending on endoscopy report we will decide whether patient is stable to be discharged today versus 1 more stay in the hospital I have counseled patient not to take meloxicam anymore She does not need iron supplementation for now I will replenish her B12 to keep it above 400 Attestations 2 Medical Necessity Statement*: Continue medical management Diagnoses Upper GI bleed K92.2 Acute blood loss anemia D62 Rheumatoid arthritis M06.9 Back pain M54.9 Essential hypertension I10 Other specified hypothyroidism E03.8 Hypothyroidism type: other
--- NOTE | 2024-03-02 11:25 | ANE.PACU2 ---
Inpatient post-anesthesia follow up: Airway intact: Yes Vital signs: Temperature 97.8 F Pulse Rate 98 Respiratory Rate 18 Blood Pressure 161/84 Pulse Oximetry 98 Oxygen Delivery Me thod Room Air Oxygen Flow Rate Fraction of Inspir ed Oxygen Hydration adequate: Yes Nausea and vomiting: No Pain level: 1 Mental status: Baseline
--- NOTE | 2024-03-02 11:49 | P.ANESASSM_ITS ---
Pre-Anesthetic Assessment Height/Weight: Height 1.52 m Weight 60.441 kg Temp Pulse Resp BP Pulse Ox O2 Del Method 97.6 F 106 H 18 146/88 94 Room Air 03/02/24 10:57 03/02/24 10:57 03/02/24 10:57 03/02/24 10:57 03/02/24 10:57 03/02/24 10:57 Preop Diagnosis: upper gi bleeding Operation Date: 03/02/24 11:15 Proposed Procedures p EGD with possible biopsy and bleeding control(Not Applicable) - Fredrick Dorsey MD Was Beta Emma taken within 24 hours: N/A Was Clonidine taken within 24 hours: N/A Last intake: Intake Last Liquid Date 03/01/24 Last Liquid Time 21:00 Last Solid Date 02/29/24 Last Solid Time 18:00 Social No alcohol and No tobacco Exam alert, oriented x 3, clear to auscultation bilaterally and regular rate & rhythm Airway Submandibular: within normal limits Cervical ROM: within normal limits Mallampati: Class II Dentition: other Comments: Comments: Missing one tooth History/ROS No significant history except as noted and No significant complaints Pulmonary Chronic Obstructive Pulmonary Disease and Shortness of Breath SOB with Exertion CV/HEM Anemia Given 1 unit of PRBC's None reported Hepatic None reported GI None reported Metabolic None reported Musc/skel Lower Back Pain and Weakness Neuropsych None reported Anesthetic Plan ASA status: 3 Anesthesia: MAC Risk of > 500 ml blood loss (7ml/kg in children): No Medications/Allergies Home Medications Medication Instructions Recorded Confirmed Last Taken Type metoprolol tartrate 25 mg tablet 25 mg PO BID #60 tabs 09/07/23 03/01/24 03/01/24 Rx fenofibrate 160 mg tablet 160 mg PO DAILY #30 tabs 12/03/23 03/01/24 03/01/24 Rx meloxicam 15 mg tablet 15 mg PO DAILY arthritis #30 tabs 12/14/23 03/01/24 03/01/24 Rx escitalopram oxalate 20 mg tablet 20 mg PO BEDTIME 03/01/24 03/01/24 02/29/24 History levothyroxine 75 mcg capsule 75 mcg PO QAM 03/01/24 03/01/24 03/01/24 History loratadine 10 mg tablet (Claritin) 10 mg PO DAILY PRN ALLERGIES 03/01/24 03/01/24 Unknown History Allergies Allergy/AdvReac Type Severity Reaction Status Date / Time No Known Allergies Allergy Verified 03/01/24 10:58 Current Medications Generic Name Dose Route Start Last Admin Trade Name Alexia PRN Reason Stop Dose Admin Acetaminophen 500 mg 03/01/24 15:07 03/01/24 21:10 Acetaminophen 500 Mg Tablet PO 500 mg Q4H PRN Administration fever Sodium Chloride 1,000 mls @ 75 mls/hr 03/01/24 15:07 03/02/24 06:20 Sodium Chloride 0.9% IV 75 mls/hr .[id number] RETA Administration Sodium Chloride 1,000 mls @ 30 mls/hr 03/01/24 21:47 03/02/24 11:00 Sodium Chloride 0.9% IV 03/02/24 21:46 30 mls/hr .Q24H ONE Administration Pantoprazole Sodium 40 mg 03/01/24 18:00 03/02/24 08:09 Pantoprazole 40 Mg Sdv IVP 40 mg BID RETA Administration PFSH Anesthesia Medical History Enrolled in chronic care management Ischemic bowel disease 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 Pain management contract signed Rheumatoid arthritis Rheumatoid arthritis Surgical History S/P appendectomy S/P laparotomy Family History Other Rheumatoid arthritis Denies family history of Diabetes Lupus CAD (coronary artery disease) Cancer Hypertension Social History Smoking and tobacco/nicotine status: never used tobacco/nicotine Alcohol intake: never Substance/Drug Use: never Data Anesthesia 03/02/24 02:00 03/02/24 02:00 Short CBC 03/01/24 03/02/24 Range/Units 10:37 02:00 WBC 5.17 7.63 (3.29-11.43) 10^3/uL Hgb 7.30 L 8.70 L (11.27-16.99) g/dL Hct 24.3 L 27.5 L (36-47) % MCV 85.0 83.6 L (85-98) fl Plt Count 630 H 580 H (157-399) 10^3/cmm Neut % (Auto) 40.9 56.8 % Neut # (Auto) 2.11 4.33 (1.8-7.7) 10^3/uL BMP 03/01/24 03/02/24 10:37 02:00 Sodium 133 L 136 Potassium 4.9 4.5 Chloride 101 106 Carbon Dioxide 21 L 21 L BUN 24 H 24 H Creatinine 0.9 0.8 Glucose 103 94 Calcium 9.2 8.9 Liver Function 03/01/24 Range/Units 10:37 Total Bilirubin 0.2 (0.15-1.2) mg/dL AST 29 (0-32) U/L ALT 9 (0-33) U/L Alkaline Phosphatase 56 (35-105) U/L Albumin 3.8 (3.5-5.2) g/dL Blood Bank 03/01/24 10:37 Blood Type O Negative Rho(D) Type Rh negative Antibody Screen Positive Coa 03/01/24 11:44 PT 13.70 INR 1.02 APTT 31.3 C-Reactive Protein 3.3 Cardiac Studies: 2 No Data to Display
--- NOTE | 2024-03-02 12:34 | PM.MISC ---
Miscellaneous Note Purpose of Documentation: Update on patient care Note: EGD done today no significant active bleeding noted. Erosive gastritis noted, large hiatal hernia was noted and also duodenitis. Biopsies were taken. My recommendation is for patient to continue on twice a day PPI for 4 weeks and Carafate for the next 2 weeks. I will follow-up with her in 2 weeks and at that time we will discuss the need for additional treatment.
[2024-03-02] MEDS: acetaminophen 500 mg Tablet PO ×2 (14:06→19:30)
[2024-03-02] MEDS: sucralfate 1 gm/10 mL Oral Liq UDC PO ×2 (17:37→21:18)
[2024-03-02] MEDS: oxyCODONE 5 mg IR Tab/Cap PO (17:48)
[2024-03-02] MEDS: ondansetron 2 mg/ML SDV 2 mL 4 MG IVP (19:30)
[2024-03-03] VITALS: BP 103/60; PULSE 116; RESP 17; TEMP 37.4; O2SAT 90
[2024-03-03 04:00] VITALS: BP 101/66; PULSE 111; RESP 16; TEMP 36.7; O2SAT 90
[2024-03-03 05:39] LABS: Basophils # 0.1 10^3/uL (0.0-0.1); Basophils % 0.5 %; Hematocrit 30.9 % (36-47); Lymphocytes # 0.4 10^3/uL (0.8-4.8); Lymphocytes % 1.6 %; Mean Corpuscular Hemoglobin 26.7 pg (27-33); Mean Corpuscular Volume 83.3 fl (85-98); Mean Platelet Volume 9.1 fL (7.4-10.4); Monocytes # 0.2 10^3/uL (0.2-0.9); Monocytes % 0.9 %; Neutrophils # 21.36 10^3/uL (1.8-7.7); Neutrophils % 96.2 %; Nucleated Red Blood Cells % 0.2 %; Platelet Count 287 10^3/cmm (157-399); Red Blood Count 3.71 10^6/uL (3.85-5.65); Red Cell Distribution Width 14.8 % (12.1-15.1); White Blood Count 22.19 10^3/uL (3.29-11.43)
[2024-03-03 06:00] LABS: Anion Gap 12.6 (5-19); Blood Urea Nitrogen 18 mg/dL (8-23); Calcium 7.9 mg/dL (8.5-10.5); Carbon Dioxide 19 mmol/L (22-29); Chloride 108 mmol/L (98-107); Creatinine Clr Calc Pharmacy 46.1805; Glucose 101 mg/dL (65-115); Osmolality Calculated 284 mOsm/kg (285-295); Potassium 3.6 mmol/L (3.5-5.1); Sodium 136 mmol/L (136-145)
--- NOTE | 2024-03-03 06:06 | PC.NURSE ---
Patient IV in right AC started leaking this morning and was found to be no longer working. Nurse attempted twice to obtain IV access with no success. A second nurse attempted twice to gain IV access but was unsuccessful as well. The patient asked to be given a break and states they have had trouble getting IVs in her before. The nurse will pass along to day shift that patient may possibly be discharging but if she does not we will need to reattempt to obtain IV access.
[2024-03-03] MEDS: sucralfate 1 gm/10 mL Oral Liq UDC PO (06:15)
[2024-03-03 07:50] VITALS: BP 105/59; PULSE 78; RESP 16; TEMP 36.9; O2SAT 93
--- NOTE | 2024-03-03 08:10 | PM.DCS ---
Discharge Providers Date of Admission: 03/01/24 14:29 Date of Discharge: March 03, 2024 Attending Provider at Admission: Tyesha Zavaleta MD Attending Provider at Discharge: Tyesha Zavaleta MD Primary Care Provider: Maria Elena Cottrell MD Diagnoses at Discharge Discharge Diagnosis (1) Upper GI bleed: Status: Acute (2) Acute blood loss anemia: Status: Acute (3) Rheumatoid arthritis: Status: Acute (4) Back pain: Status: Acute (5) Essential hypertension: Status: Chronic (6) Hypothyroidism: Status: Acute Qualifiers: Hypothyroidism type: other Qualified Code(s): E03.8 - Other specified hypothyroidism Reason for Visit Reason for Visit: blood in stool, fall Hospital Course Hospital Course 78-year-old female who present to the hospital for generalized weakness and fatigue, she was diagnosed with acute on chronic anemia, microcytic in nature normal iron low normal B12, she was given 2 unit PRBC which were all negative, patient remained hemodynamic stable, she was given bowel prep, plan for EGD for evaluation of melanotic stools, she does have hiatal hernia and gastritis with duodenitis, neurosurgery recommended Protonix and sucralfate regimen at the time of discharge. I have asked patient not to take meloxicam/ibuprofen. She is being discharged with stable hemodynamics. She does have leukocytosis, repeat CBC showed mild improvement from 22,000 and 19,000 She is not showing any signs of fever, sepsis, meningitis, mild signs of dysuria present, I will give her cefpodoxime for 5-day regimen at the time of discharge Physical Exam Narrative: Awake and alert Nonfocal neuroexam GCS 15 Pleasant Pale complexion improving Hemodynamically stable Discharge Data Studies Completed and Pending Completed Studies During Hospitalization Category Date Time Status CT abdomen pelvis con [id number] Stat Cat Scan 03/01/24 12:15 Completed Pending at discharge Category Date Time Status Antibody Identification Stat Lab 03/01/24 10:37 Results Leukocyte Reduced RBC Stat Lab 03/01/24 10:37 Results Type and Screen Routine Lab 03/01/24 10:37 Results Pathology: Surgical [PTH] Routine Pth 03/02/24 12:30 Received Radiology Impressions Abdomen/Pelvis CT 03/01/24 12:15 IMPRESSION: 1. Large esophageal hiatal hernia with partial intrathoracic stomach similar to previous. 2. Prior cholecystectomy. 3. Prior appendectomy and hysterectomy. 4. Evidence of prior partial colon and/or small bowel resection in the pelvis. 5. Osteoporosis. 6. No other acute findings. Laboratory Results WBC 22.19 10^3/uL (3.29-11.43) H 03/03/24 05:19 RBC 3.71 10^6/uL (3.85-5.65) L 03/03/24 05:19 Hgb 9.90 g/dL (11.27-16.99) L 03/03/24 05:19 Hct 30.9 % (36-47) L 03/03/24 05:19 MCV 83.3 fl (85-98) L 03/03/24 05:19 MCH 26.7 pg (27-33) L 03/03/24 05:19 MCHC 32.0 g/dL (30-55) 03/03/24 05:19 RDW 14.8 % (12.1-15.1) 03/03/24 05:19 Plt Count 287 10^3/cmm (157-399) D 03/03/24 05:19 MPV 9.1 fL (7.4-10.4) 03/03/24 05:19 Neut % (Auto) 96.2 % 03/03/24 05:19 Lymph % (Auto) 1.6 % 03/03/24 05:19 Liberty % (Auto) 0.9 % 03/03/24 05:19 Eos % (Auto) 0.0 % 03/03/24 05:19 Baso % (Auto) 0.5 % 03/03/24 05:19 Neut # (Auto) 21.36 10^3/uL (1.8-7.7) H 03/03/24 05:19 Lymph # (Auto) 0.4 10^3/uL (0.8-4.8) L 03/03/24 05:19 Liberty # (Auto) 0.2 10^3/uL (0.2-0.9) 03/03/24 05:19 Eos # (Auto) 0.0 10^3/uL (0.0-0.8) 03/03/24 05:19 Baso # (Auto) 0.1 10^3/uL (0.0-0.1) 03/03/24 05:19 Nucleated RBC % (auto) 0.2 % 03/03/24 05:19 Nucleated RBCs # 0.0 /100WBC 03/03/24 05:19 PT 13.70 SECONDS (12.1-14.9) 03/01/24 11:44 INR 1.02 (0.8-1.2) 03/01/24 11:44 APTT 31.3 SECONDS (23.9-36.7) 03/01/24 11:44 Sodium 136 mmol/L (136-145) 03/03/24 05:19 Potassium 3.6 mmol/L (3.5-5.1) 03/03/24 05:19 Chloride 108 mmol/L (98-107) H 03/03/24 05:19 Carbon Dioxide 19 mmol/L (22-29) L 03/03/24 05:19 Anion Gap 12.6 (5-19) 03/03/24 05:19 BUN 18 mg/dL (8-23) 03/03/24 05:19 Creatinine 0.6 mg/dL (0.5-0.9) 03/03/24 05:19 GFR Calculation Not Reportable 03/03/24 05:19 Glucose 101 mg/dL (65-115) 03/03/24 05:19 Estimat Average Glucose 77 03/01/24 10:37 Hemoglobin A1c 4.3 % (4.0-6.0) 03/01/24 10:37 Calculated Osmolality 284 mOsm/kg (285-295) L 03/03/24 05:19 Calcium 7.9 mg/dL (8.5-10.5) L 03/03/24 05:19 Phosphorus 3.3 mg/dL (2.5-4.5) 03/02/24 02:00 Magnesium 2.5 mg/dL (1.7-2.3) H 03/02/24 02:00 Iron 46 ug/dL (37-145) 03/01/24 11:44 TIBC 299 mcg/dl 03/01/24 11:44 % Saturation 15.3 % (20-50) L 03/01/24 11:44 Unsat Iron Binding 253 ug/dL (112-347) 03/01/24 11:44 Ferritin 49 ng/mL (15-150) 03/01/24 10:37 Total Bilirubin 0.2 mg/dL (0.15-1.2) 03/01/24 10:37 AST 29 U/L (0-32) 03/01/24 10:37 ALT 9 U/L (0-33) 03/01/24 10:37 Alkaline Phosphatase 56 U/L (35-105) 03/01/24 10:37 C-Reactive Protein 3.3 mg/L (0.0-4.9) 03/01/24 11:44 Total Protein 7.1 g/dL (6.6-8.7) 03/01/24 10:37 Albumin 3.8 g/dL (3.5-5.2) 03/01/24 10:37 Globulin 3.3 g/dL (1.3-4.6) 03/01/24 10:37 Vitamin B12 378 pg/mL (232-1245) 03/01/24 10:37 Blood Type O Negative 03/01/24 10:37 Rho(D) Type Rh negative 03/01/24 10:37 Antibody Screen Positive 03/01/24 10:37 Antibody Identification Anti-Fya 03/01/24 10:37 Crossmatch See Detail 03/01/24 10:37 Vitals Last Vital Signs Temp 98.4 F 03/03/24 07:50 Pulse 78 03/03/24 07:50 Resp 16 03/03/24 07:50 BP 105/59 03/03/24 07:50 Pulse Ox 93 03/03/24 07:50 O2 Del Method Room Air 03/03/24 07:50 Discharge Plan Discharge Patient Disposition: Home Condition: Stable Prescriptions: New sucralfate 100 mg/mL Suspension 1 g PO AC&BEDTIME Qty: 1000 2RF omeprazole 20 mg tablet,delayed release (DR/EC) 20 mg PO BID 84 Days Qty: 168 0RF cefpodoxime 200 mg tablet 200 mg PO BID Qty: 10 0RF Rx Instructions: must administer with a meal/food Continued metoprolol tartrate 25 mg tablet 25 mg PO BID Qty: 60 5RF fenofibrate 160 mg tablet 160 mg PO DAILY Qty: 30 2RF Claritin 10 mg tablet 10 mg PO DAILY PRN (Reason: ALLERGIES) escitalopram oxalate 20 mg tablet 20 mg PO BEDTIME levothyroxine 75 mcg capsule 75 mcg PO QAM Discontinued meloxicam 15 mg tablet 15 mg PO DAILY Qty: 30 3RF Discharge Orders: Discharge Order (Routine); Ordered 03/03/24 Ordered By: Tyesha Zavaleta Referrals: Fredrick Dorsey MD [Physician] - 03/15/24 1:55 pm () Maria Elena Cottrell MD [Primary Care Provider] - 4-7 days (We have notified your physician's clinic of the need for a follow-up appointment to be scheduled. If you have not heard from them within the next 2 business days, please call them directly. ) Patient Instructions: Sucralfate (By mouth), Omeprazole (By mouth), GI Bleeding, GI Discharge Instructions, Opioid Safety Discharge Attestations Time Spent in Discharge Care*: greater than 30 min Quality Metrics Clinical Quality Measures [ No reported AMI, CVA or VTE this stay] Coding Level of Care Code Acute Code for [facility] Fwd Diagnoses Upper GI bleed K92.2 Acute blood loss anemia D62 Rheumatoid arthritis M06.9 Back pain M54.9 Essential hypertension I10 Other specified hypothyroidism E03.8 Hypothyroidism type: other
--- NOTE | 2024-03-03 08:16 | P.PN_ITS ---
Subjective 2 Subjective: Patient is doing well this morning, tolerating diet, no significant abdominal pain, passing gas and had a large bowel movement yesterday night. Vitals/I&O/Wt Last Vital Signs Temp 98.4 F 03/03/24 07:50 Pulse 78 03/03/24 07:50 Resp 16 03/03/24 07:50 BP 105/59 03/03/24 07:50 Pulse Ox 93 03/03/24 07:50 O2 Del Method Room Air 03/03/24 07:50 03/02/24 03/03/24 03/03/24 22:59 06:59 14:59 Intake Total 1453.75 / 1703.75 911.25 / 2615.00 Balance 1453.75 / 1703.75 911.25 / 2615.00 Weight last 48 hrs Weight 137 lb Weight 133 lb 4 oz Weight 127 lb 3.2 oz Weight 123 lb Physical Exam 2 GI: OTHER: Abdominal exam is benign, abdomen soft nontender nondistended. Data 03/03/24 05:19 03/03/24 05:19 A&P Assessment and plan (1) Upper GI bleed: Plan 78-year-old female who is postoperative day 1 status post EGD with biopsy for possible upper GI bleeding. Patient is doing well this morning, has tolerated diet feeling much better, bowel movements have improved. Her vital signs are stable. Hemoglobin has noted to trend up. Labs this morning showed significant uptrend of the white count with a WBC of 22 which is likely an outlier as patient clinical status and vital signs are completely normal. From the general surgery standpoint patient should continue twice a day PPI and Carafate liquid as outpatient and can follow-up in my clinic in 2 weeks. No other surgical intervention is anticipated at this time. I will defer all other management to the primary team. Attestations 2 Medical Necessity Statement*: Per primary. Coding Level of Care Code Acute Code for [facility] Fwd Diagnoses Upper GI bleed K92.2
[2024-03-03 09:20] LABS: Basophils # 0.1 10^3/uL (0.0-0.1); Basophils % 0.4 %; Eosinophils % 0.1 %; Hematocrit 29.6 % (36-47); Lymphocytes # 0.5 10^3/uL (0.8-4.8); Lymphocytes % 2.7 %; Mean Corpuscular HGB Conc 31.4 g/dL (30-55); Mean Corpuscular Hemoglobin 26.8 pg (27-33); Mean Corpuscular Volume 85.3 fl (85-98); Mean Platelet Volume 9.2 fL (7.4-10.4); Monocytes # 0.2 10^3/uL (0.2-0.9); Monocytes % 1.1 %; Neutrophils # 18.91 10^3/uL (1.8-7.7); Neutrophils % 95.1 %; Nucleated Red Blood Cells % 0.2 %; Platelet Count 275 10^3/cmm (157-399); Red Blood Count 3.47 10^6/uL (3.85-5.65); Red Cell Distribution Width 14.8 % (12.1-15.1); White Blood Count 19.84 10^3/uL (3.29-11.43)
[2024-03-03 12:09] VITALS: BP 105/59; PULSE 78; RESP 16; TEMP 36.9; O2SAT 93
--- NOTE | 2024-03-03 12:09 | PC.NURSE ---
Discharge Note Patient discharged to home via POV accompanied by son. Discharge instructions reviewed with patient and/or sales representative printing paper. Mobile pharmacy medications and/or prescriptions provided. Belongings/home medications returned.
== END 2024-03-03 10:00 | disposition home or self-care (01) ==
LOC: ER 12:25 → MEDSURG 14:29
PROVIDERS: Emergency Medicine; Surgery; Admitting Provider Internal Medicine; Emergency Provider Emergency Medicine; PCP Family Medicine; Visit Provider Internal Medicine
PROC: 0DJ08ZZ Inspection of Upper Intestinal Tract, Via Natural or Artificial Opening Endoscopic (ICD-10-PCS; CPT 43235; principal; 2024-03-02 11:15)
DX: D62 Acute posthemorrhagic anemia (principal); M06.9 Rheumatoid arthritis, unspecified; M54.9 Dorsalgia, unspecified; I10 Essential (primary) hypertension; E03.8 Other specified hypothyroidism; Z91.81 History of falling; K44.9 Diaphragmatic hernia without obstruction or gangrene; K29.80 Duodenitis without bleeding; K29.50 Unspecified chronic gastritis without bleeding; J44.9 Chronic obstructive pulmonary disease, unspecified; Z87.11 Personal history of peptic ulcer disease
CPT/HCPCS: 36415; 36430; 43239; 74176; 80048; 80053; 82607; 82728; 83036; 83540; 83550; 83735; 84100; 85025; 85610; 85730; 86140; 86850; 86870; 86900; 86920; 88305; 88342; 93005; 96374; 99285; C9113; G0378; J2405; J2704; J7030; P9016